=== PATIENT | female | born 1980 | race Caucasian/White ===

== ENCOUNTER → 2019-03-13 | Outpatient (CLI) | payer BC ==
[~2019-03-13] MED LIST: ACHD5005 PO; ACHYD1T PO; IBP800T PO; PREN-115 PO; SUMA100T2 PO
--- NOTE | 2019-03-13 17:20 | Diagnostic Imaging Report ---
INDICATION: Routine screening. No prior mammograms are available for comparison. This is a baseline study. 2-D and 3-D bilateral screening mammography was performed with a Computer Aided Detection (CAD) system. FINDINGS: Both breasts are heterogeneously dense, limiting the sensitivity of mammography. No mass or malignant-appearing microcalcifications are seen. Axillae are unremarkable. There appears to be an intramammary lymph node in the upper-outer left breast posterior depth. IMPRESSION: No mammographic features suspicious for malignancy are identified. ACR BI-RADS Category 2: Benign findings. Result letter will be mailed to the patient. Note: At least 10% of breast cancer is not imaged by mammography. Dictated by: Dictated on workstation # [id number]
== END ==
LOC: RAD 09:35
PROVIDERS: ATTEND Obstetrics & Gynecology
DX: Z12.31 Encounter for screening mammogram for malignant neoplasm of breast (principal)
CPT/HCPCS: 77067

== ENCOUNTER → 2019-03-17 | Outpatient (CLI) | payer BC ==
--- NOTE | 2019-03-17 16:29 | Diagnostic Imaging Report ---
PROCEDURE: US Renal Bilateral. TECHNIQUE: Multiple real-time grayscale images were obtained over the kidneys in various projections bilaterally. INDICATION: Elevated creatinine. FINDINGS: Right kidney measures 10.5 x 3.5 x 4.9 cm and the left kidney measures 10.4 x 6.4 x 5.3 cm. Cortical thickness and echogenicity is normal. No calculi are seen. There is no hydronephrosis. There appears to be a cyst in the right kidney measuring 17 mm in diameter. Left kidney is unremarkable. Bladder demonstrates bilateral ureteral jets. IMPRESSION: Right renal cyst. The study is otherwise unremarkable. Dictated by: Dictated on workstation # [id number]
== END ==
LOC: RAD 15:19
PROVIDERS: ATTEND Internal Medicine
DX: N28.1 Cyst of kidney, acquired (principal)
CPT/HCPCS: 76770

== ENCOUNTER → 2020-05-19 | Outpatient (CLI) | payer BC ==
--- NOTE | 2020-05-19 12:18 | Diagnostic Imaging Report ---
PROCEDURE: US Thyroid. TECHNIQUE: Multiple Real-time grayscale images were obtained of the thyroid in various projections. INDICATION: Multinodular goiter. Patient has had the prior right thyroid lobe removed. COMPARISON: No prior studies are available for comparison. FINDINGS: The left lobe of the thyroid measures 5.2 x 1.4 x 1.5 cm. There appears to be a nodule in the lower pole measuring approximately 7 mm x 6 mm in size. No other left lobe thyroid nodules are seen. The isthmus is 2 mm in thickness. The right lobe has been surgically removed. There does appear to be some minimal residual thyroid tissue on the right. The tissue at the right thyroid bed does appear to be somewhat heterogeneous and indeterminate. No fluid collections are seen. IMPRESSION: 1. Subcentimeter left lobe thyroid nodule. 2. Status post right thyroidectomy. There is some heterogeneous tissue in the right thyroid bed. Correlation with CT soft tissue neck with contrast would be useful for better characterization. Dictated by: Dictated on workstation # [id number]
== END ==
LOC: RAD 10:04
PROVIDERS: ATTEND Otolaryngology
DX: E04.2 Nontoxic multinodular goiter (principal); Z98.890 Other specified postprocedural states
CPT/HCPCS: 36415; 76536; 84443

== ENCOUNTER → 2023-09-24 | Outpatient (CLI) | payer BC ==
--- NOTE | 2023-09-24 14:52 | Diagnostic Imaging Report ---
INDICATION: Routine screening. COMPARISON: 05/29/2022 and 03/13/2019. TECHNIQUE: 2D and 3D bilateral screening mammography was performed with CAD. FINDINGS: Both breasts are heterogeneously dense, limiting the sensitivity of mammography. The parenchymal pattern is stable. No mass or malignant-appearing microcalcifications are identified. The axillae are unremarkable. IMPRESSION: No mammographic features suspicious for malignancy are identified. ACR BI-RADS Category 1: Negative. Result letter will be mailed to the patient. Note: At least 10% of breast cancer is not imaged by mammography. Dictated by: Dictated on workstation # [id number]
== END ==
LOC: RAD 08:00
PROVIDERS: ATTEND Nurse Practitioner Family
DX: Z12.31 Encounter for screening mammogram for malignant neoplasm of breast (principal)
CPT/HCPCS: 77063; 77067